=== PATIENT | female | born 1970 | race Caucasian/White ===

== ENCOUNTER → 2016-12-19 | Outpatient (CLI) | payer BC ==
--- NOTE | 2016-12-19 19:05 | CONS ---
DATE OF CONSULTATION: 12/19/2016 This patient is a 46-year-old lady who has been evaluated in the sleep center for possible obstructive sleep apnea/hypopnea syndrome. HISTORY OF PRESENT ILLNESS/SLEEP-WAKE EVALUATION: Patient's usual sleep schedule on working days is from around 8 p.m. until 5 or 5:20 a.m., on weekends from around 10 p.m. until various times, from 6 a.m. to 10 a.m. She usually does not have any problem with falling asleep. Has TV set in the bedroom. Sleeps on the side position with her with loud snoring and witnessed episodes of stopped breathing during sleep. In the morning she wakes up tired, has problems with memory, concentration, depression and anxiety. [place] Sleepiness Scale is significantly increased to 11. She usually does not take naps on weekdays because she is busy, but on weekends she may take some naps. Past medical history is positive for: 1. Episodes of anxiety attacks. 2. Allergies. 3. Hot flashes recently. MEDICATIONS: 1. Wellbutrin. 2. Lexapro. 3. Xanax. SOCIAL HISTORY: Positive for smoking for about 25 pack-years. Alcohol consumption is occasional. REVIEW OF SYSTEMS: Snoring. Sleepiness during the day. No fevers. No double vision. No recent chest pain. No shortness of breath. No abdominal pain. No bleeding episodes. No blood in urine. No seizure episodes. FAMILY HISTORY: Hypertension, heart problems, headaches. PHYSICAL EXAMINATION: GENERAL: A pleasant 46-year-old lady without distress. VITAL SIGNS: BP 155/81, HR 80, RR 16. Height 5 feet 6-1/2 inches. Weight 150. BMI 23.8. Neck 13-1/4 inches in circumference. Temperature 98.0. Oxygen saturation at room air 98%. HEENT: PERRLA, EOMI. Evaluation of oropharynx showed tongue protrudes midline; extremely low position of soft palate. Some restriction of nasal breathing. NECK: Supple. No JVD. Thyroid is not palpable. LUNGS: Clear to percussion and to auscultation. Good air exchange. No wheezing or rhonchi. HEART: S1, S2 regular. No murmurs, gallops or rubs. ABDOMEN: Soft and nontender. Bowel sounds are present. No organomegaly appreciated. EXTREMITIES: No clubbing or cyanosis. CUSTOMER OPERATIONS SPECIALIST: Awake, alert, and oriented x3. Cranial nerves 2 to 7 intact. There is no fasciculation or atrophy noted. No focal deficits observed. IMPRESSION: 1. Snoring, witnessed episodes of stopped breathing during sleep, extremely low position of soft palate, sleepiness; possible obstructive sleep apnea-hypopnea syndrome. 2. Hot flashes, possibly perimenopausal. 3. Anxiety. 4. Allergies. PLAN: 1. Polysomnography for evaluation of patient's breathing during sleep. 2. CPAP/BiPAP titration if sleep study confirms obstructive sleep apnea-hypopnea syndrome. 3. Preferable position during sleep on the side. 4. No driving if patient feels any sleepiness. Patient is aware of civil and criminal liability for unsafe driving. 5. I will see patient for follow-up visit to explain results of the testing and following plan. Sincerely, Jimi Barger MD, PhD, FAASM. Diplomat of [employer], Sleep Medicine Board by [employer] [facility] [place]
== END ==
LOC: SLEEP 14:53
PROVIDERS: ATTEND Internal Medicine
DX: R06.83 Snoring (principal); F41.9 Anxiety disorder, unspecified; N95.1 Menopausal and female climacteric states; T78.40XA Allergy, unspecified, initial encounter
CPT/HCPCS: 99211

== ENCOUNTER → 2017-04-10 | Outpatient (CLI) | payer BC ==
--- NOTE | 2017-04-11 11:19 | PN ---
DATE OF SERVICE: 04/10/2017 A 46-year-old lady who has been followed in the Sleep Center for treatment of obstructive sleep apnea-hypopnea syndrome. I discussed results of diagnostic polysomnogram which showed mild sleep apnea- hypopnea syndrome. Apnea-hypopnea index of 10.5. Patient was present with symptoms of significant excessive daytime sleepiness with [place] sleepiness scale 14 and multiple episodes of migraines. Presently she was started on treatment with auto PAP with range of pressure 5 to 20. Patient is trying to use equipment every night for the whole night. For most of the night she uses it more than 4 hours. Patient feels significantly better. With the machine she sleeps better. She does not have episodes of migraines anymore since she started to use her equipment. She also does not feel sleepiness during the day anymore. Her [place] sleepiness scale decreased to 4 presently. MEDICATIONS: Wellbutrin, Lexapro and Xanax. During physical exam, the patient is in no distress. VITAL SIGNS: BP 125/78, HR 84, RR 16, weight 155, temp 98.7, oxygen saturation on room air 98%. HEENT: PERRLA, EOMI. Evaluation of oropharynx showed low position of soft palate. NECK: Supple. No JVD. Thyroid is not palpable. LUNGS: Clear to percussion and to auscultation. Good air exchange. No wheezing or rhonchi. HEART: S1, S2 regular. No murmurs, gallops or rubs. ABDOMEN: Soft and nontender. Bowel sounds are present. No organomegaly appreciated. EXTREMITIES: No cyanosis or clubbing. INTERNET ARCHITECT: Awake, alert and oriented x3. Cranial nerves II through VII intact. There is no fasciculation or atrophy noted. No focal deficits observed. IMPRESSION: 1. Obstructive sleep apnea-hypopnea syndrome on control with CPAP. Patient benefitting from treatment 2. History of migraines. No migraines after starting treatment with CPAP. 3. History of sleepiness. No sleepiness at the present time while on treatment with CPAP. 4. History of anxiety. 5. Mild periodic limb movements during diagnostic sleep study. No present clinical problem with leg movements. PLAN: 1. Patient will continue to use her CPAP equipment every night for the whole night. 2. Sleep hygiene with regular time in bed for at least 7-1/2 hours. 3. No driving if feeling any sleepiness. 4. Iron profile including ferritin level. Low level of iron may increase risk for periodic limb movements. In that case replacement of iron would be indicated. Thank you very much for allowing me to participate in the management of your patient. Sincerely, Vee Barger MD, PhD, FAASM Diplomat of [employer], Sleep Medicine Board by [employer] [facility] Pract[facility] [place]
== END | disposition home or self-care (01) ==
LOC: SLEEP 16:18
PROVIDERS: ATTEND Internal Medicine
DX: G47.33 Obstructive sleep apnea (adult) (pediatric) (principal); G47.61 Periodic limb movement disorder